=== PATIENT | male | born 2000 | race Caucasian/White ===

== ENCOUNTER 2020-07-23 17:05 | Emergency (ER) | payer MEDICAID ==
[~2020-07-23] VITALS: Ht 167.6 cm; Wt 68.2 kg
[2020-07-23 17:07] VITALS: BP 117/65
[2020-07-23] MEDS ORDERED: SERT50TA12 PO (17:11)
[2020-07-23 18:40] LABS: COVID AG,FIA SOURCE NASOPHARYNGEAL
== END 2020-07-23 18:55 | disposition home or self-care (01) ==
LOC: EMS 17:05
DX: J02.9 Acute pharyngitis, unspecified (principal); R05 Cough; R09.81 Nasal congestion; Z20.828 Contact with and (suspected) exposure to other viral communicable diseases
CPT/HCPCS: 71045; 87426; 99284; C9803; U0003